=== PATIENT | female | born 1950 | race African-American/Black ===

== ENCOUNTER 2017-12-30 19:27 | Observation (INO) | payer SELFPAY ==
[~2017-12-30] VITALS: Ht 172.7 cm; Wt 89.9 kg
[2017-12-30 20:22] LABS: HEMATOCRIT 39.9 % (36.0-46.0); MCHC 32.6 G/DL (30.0-36.0); MCV 67.4 FL (83-99); RBC DIS.WIDTH-CV 15.8 % (11.8-14.6); RBC DIS.WIDTH-SD 36.6 % (39-53); RED BLOOD COUNT 5.92 M/uL (3.80-5.20); WHITE BLOOD COUNT 8.2 K/uL (4.1-10.2)
[2017-12-30 20:25] LABS: PLATELET COUNT 252 K/uL (156-360)
[2017-12-30 20:34] LABS: ALBUMIN 4.3 G/DL (3.2-4.8); CHLORIDE 104 MEQ/L (99-109); POTASSIUM 4.4 MEQ/L (3.7-5.4); SODIUM 140 MEQ/L (136-147); TOTAL BILIRUBIN 0.7 MG/DL (0.0-1.0)
[2017-12-30 20:40] LABS: ALKALINE PHOSPHATASE 104 IU/L (3-129); ALT (GPT) 11 IU/L (3-49); AST (GOT) 15 IU/L (2-34); CREATININE 0.6 MG/DL (0.6-1.3); GFR ESTIMATE (CALCULATED) > 59 mL/min/; GLUCOSE 117 mg/dL (70-99); TOTAL PROTEIN 8.1 G/DL (6.4-8.3); UREA NITROGEN (BUN) 8 mg/dL (9-23)
[2017-12-30 21:30] LABS: INTER. NORMALIZED RATIO 1.1
[2017-12-30 21:32] LABS: PTT 27.8 SEC (25-37)
[2017-12-30 23:13] LABS: APPEARANCE SL.HAZY ((CLEAR)); BILIRUBIN NEGATIVE; BLOOD NEGATIVE; GLUCOSE (STRIP) NEGATIVE; KETONES 20; LEUKOCYTES NEGATIVE; NITRITE NEGATIVE; PROTEIN (STRIP) NEGATIVE; UROBILINOGEN 0.2 MG/DL (0.2-1.0)
[2017-12-30 23:17] LABS: COLOR STRAW ((YELLOW))
[2017-12-30 23:19] LABS: BACTERIA NONE SEEN /HPF; EPITHELIAL CELLS RARE /HPF; MUCUS TRACE /LPF; UCUL ADDED? NO; WHITE BLOOD CELLS 0-5 /HPF (0-5)
[2017-12-31 04:22] VITALS: BP 137/71
[2017-12-31 07:10] VITALS: BP 131/75
[2017-12-31] MEDS ORDERED: ULTRAM50 MG PO (11:11)
[2017-12-31 16:40] VITALS: BP 102/65
== END 2017-12-31 18:32 | disposition home or self-care (01) ==
LOC: EME 19:27 → EDOF 12-31 00:12 → ENRESERV 12-31 00:50 → 5EAST 12-31 02:25
PROVIDERS: Emergency Medicine
PROC: 0YU60JZ Supplement Left Inguinal Region with Synthetic Substitute, Open Approach (ICD-10-PCS; principal; 2017-12-31)
DX: K40.30 Unilateral inguinal hernia, with obstruction, without gangrene, not specified as recurrent (principal); Z90.710 Acquired absence of both cervix and uterus; K80.10 Calculus of gallbladder with chronic cholecystitis without obstruction
CPT/HCPCS: 74177; 80053; 81003; 83605; 85027; 85610; 85730; 93005; 94799; 99281; 99285; C1781; G0378; J0131; J1100; J1885; J2250; J2405; J3010; J7040; J7120; J7643; S0020; S0074